=== PATIENT | female | born 1995 | race Caucasian/White ===

== ENCOUNTER 2018-02-04 18:23 | Emergency (ER) | payer OTHER ==
[2018-02-04 19:36] VITALS: BP 148/102
--- NOTE | 2018-02-04 20:06 | UC ---
[facility] HPI - HPI Summary HPI Summary: 22-year-old woman comes in today with a complaint of left rear upper molar and left jaw pain. Pain started yesterday in the left rear upper molar. Since then the pain has gotten worse and the pain is spread into her left jaw ear temporal and left neck. No fevers or chills. The tooth hurts with any Palpation or chewing. Denies any upper respiratory tract infection symptoms. No prior ear pain she is not a swimmer. No prior TMJ syndrome. Neck has got full range of motion. - History of Current Complaint Chief Complaint: UCDentalProblem Stated Complaint: DENTAL PAIN Time Seen by Provider: 02/04/18 19:53 Hx Last Menstrual Period: has mirina Pain Intensity: 8 - Allergies/Home Medications Allergies/Adverse Reactions: Allergies Allergy/AdvReac Type Severity Reaction Status Date / Time No Known Allergies Allergy Verified 02/04/18 19:36 Home Medications: Home Medications Ibuprofen TAB* [Advil TAB*] 200 mg PO ONCE 02/04/18 [History Confirmed 02/04/18] PMH/Surg Hx/FS Hx/Imm Hx Previously Healthy: Yes - Surgical History Surgical History: Yes Surgery Procedure, Year, and Place: T & A. ear tubes, several - Family History Known Family History: Positive: Diabetes - Social History Alcohol Use: Occasionally Substance Use Type: None Smoking Status (MU): Light Every Day Tobacco Smoker Type: Cigarettes Amount Used/How Often: 5 cigs daily Review of Systems Constitutional: Negative Skin: Negative Eyes: Negative ENT: Dental Pain, Other - SEE HPI Respiratory: Negative Cardiovascular: Negative Gastrointestinal: Negative Motor: Negative Neurovascular: Negative Musculoskeletal: Negative Neurological: Negative Psychological: Negative Is Patient Immunocompromised?: No All Other Systems Reviewed And Are Negative: Yes Physical Exam Triage Information Reviewed: Yes Appearance: Well-Appearing, No Pain Distress, Well-Nourished Vital Signs: Initial Vital Signs Temp 98 F 02/04/18 19:32 Pulse 85 02/04/18 19:32 Resp 16 02/04/18 19:32 BP 148/102 02/04/18 19:32 Pulse Ox 100 02/04/18 19:32 Vital Signs Reviewed: Yes Eye Exam: Normal Eyes: Positive: Conjunctiva Clear ENT: Positive: TMs normal, Other - Patient is most tender with palpation of the left upper rear molar. She is also tender at the left TMJ. The parotid gland and submandibular glands are nontender to palpation. Neck is supple with full range of motion. Uvula is midline there's no peritonsillar swelling. There is no facial droop. There is no rash on the face.. Negative: Pharyngeal erythema , Nasal congestion, Nasal drainage Dental: Positive: Percussion Tenderness @ - Left upper rear molar Neck: Positive: Supple Respiratory: Positive: No respiratory distress Musculoskeletal: Positive: Strength Intact, ROM Intact Neurological Exam: Normal Neurological: Positive: Alert, Muscle Tone Normal Psychological Exam: Normal Psychological: Positive: Age Appropriate Behavior Skin Exam: Normal Dental Complaint Course/Dx - Course Course Of Treatment: Most likely cause of the pain is a dental infection affecting the left upper rear molar. The left TMJ is also tender. I explained the differential diagnosis of pain in this area to include problems with the parotid TMJ the to the ear facial nerve. I let her know that if she did not improve with treatment of ibuprofen and antibiotic she needed to get reevaluated. As long as it is the tooth causing the problem her reevaluation will be through the dentist. - Differential Dx/Diagnosis Provider Diagnoses: Dental pain. LEFT JAW PAIN Discharge - Sign-Out/Discharge Documenting (check all that apply): Patient Departure All imaging exams completed and their final reports reviewed: No Studies - Discharge Plan Condition: Stable Disposition: HOME Prescriptions: Amoxicillin/Clavulanate TAB* [Augmentin TAB 875*] 875 mg PO BID #20 tab Ibuprofen TAB* [Motrin TAB* 600 MG] 600 mg PO Q6H PRN #30 tab PRN Reason: Pain Patient Education Materials: Toothache (ED) Referrals: [facility] [place] [facility] [Outside] Additional Instructions: FOLLOW UP WITH YOUR DENTIST OR PRIMARY CARE DOCTOR FOR YOUR TOOTH AND JAW PAIN. GET RECHECKED FOR ANY WORSENING OF YOUR CONDITION OR QUESTIONS OR CONCERNS. - Billing Disposition and Condition Condition: STABLE Disposition: Home
== END 2018-02-04 20:13 | disposition home or self-care (01) ==
LOC: UCCORT 18:23
DX: K08.89 Other specified disorders of teeth and supporting structures (principal); R68.84 Jaw pain; F17.210 Nicotine dependence, cigarettes, uncomplicated
CPT/HCPCS: 99212; G0463

== ENCOUNTER 2018-07-01 09:22 | Emergency (ER) | payer OTHER ==
--- NOTE | 2018-07-01 11:59 | UC ---
Dental HPI - HPI Summary HPI Summary: PT HAS HAD WORSENING PAIN LEFT UPPER WISDOM TOOTH FOR 5 DAYS. STATES SHE HAS HAD RECURRENT PROBLEMS WITH HER WISDOM TEETH AND IS IN THE PROCESS OF TRYING TO ARRANGE FOR EXTRACTION. NO FEVER, N/V. - History of Current Complaint Chief Complaint: UCDentalProblem Stated Complaint: MOUTH COMPLAINT Time Seen by Provider: 07/01/18 11:14 Hx Obtained From: Patient Hx Last Menstrual Period: iud Onset/Duration: Gradual Onset, Lasting Days, Still Present Severity: Moderate Pain Intensity: 5 Pain Scale Used: 0-10 Numeric Aggravating Factor(s): Heat, Cold, Chewing - Allergies/Home Medications Allergies/Adverse Reactions: Allergies Allergy/AdvReac Type Severity Reaction Status Date / Time No Known Allergies Allergy Verified 07/01/18 09:27 PMH/Surg Hx/FS Hx/Imm Hx Previously Healthy: Yes - Surgical History Surgical History: Yes Surgery Procedure, Year, and Place: T & A. ear tubes, several - Family History Known Family History: Positive: Diabetes - Social History Alcohol Use: Occasionally Substance Use Type: None Smoking Status (MU): Light Every Day Tobacco Smoker Type: Cigarettes Amount Used/How Often: 5 cigs daily Review of Systems All Other Systems Reviewed And Are Negative: Yes Constitutional: Positive: Negative ENT: Positive: Dental Pain Respiratory: Positive: Negative Cardiovascular: Positive: Negative Gastrointestinal: Positive: Negative Physical Exam Triage Information Reviewed: Yes Appearance: Well-Appearing, No Pain Distress, Well-Nourished Vital Signs: Initial Vital Signs Temp 96.6 F 07/01/18 09:25 Pulse 99 07/01/18 09:25 Resp 20 07/01/18 09:25 BP 135/96 07/01/18 09:25 Pulse Ox 100 07/01/18 09:25 Vital Signs Reviewed: Yes Eyes: Positive: Conjunctiva Clear ENT: Positive: Hearing grossly normal, Pharynx normal Dental: Positive: Percussion Tenderness @ - LEFT UPPER WISDOM TOOTH. Negative: Cervical Lymphadenopathy Neck: Positive: Supple, Nontender, No Lymphadenopathy Respiratory: Positive: No respiratory distress, No accessory muscle use Cardiovascular: Positive: Pulses Normal Abdomen Description: Positive: Soft Musculoskeletal: Positive: No Edema Neurological: Positive: Alert Psychological: Positive: Age Appropriate Behavior Skin: Negative: Rashes Dental Complaint Course/Dx - Differential Dx/Diagnosis Provider Diagnosis: Tooth infection Discharge - Sign-Out/Discharge Documenting (check all that apply): Patient Departure All imaging exams completed and their final reports reviewed: No Studies - Discharge Plan Condition: Stable Disposition: HOME Prescriptions: Amoxicillin/Clavulanate TAB* [Augmentin TAB 875*] 875 mg PO BID #20 tab Chlorhexidine MW 0.12% 473ML* [Peridex Mouth Wash 0.12%*] 15 ml SWISH SPIT BID # 1 bottle Patient Education Materials: Toothache (ED) Referrals: Eli Brown DIRECTOR OF FUNDRAISING [Primary Care Provider] - If Needed Additional Instructions: FOLLOW-UP WITH AN ORAL SURGEON DISCUSSED. YOU SHOULD HAVE YOUR WISDOM TEETH EXTRACTED. TAKE THE ANTIBIOTICS FOR THE FULL COURSE. RINSE YOUR MOUTH WITH WATER AFTER EATING OR DRINKING ANYTHING. ANTISEPTIC MOUTH RINSE TWICE DAILY. OTC MEDS NEEDED FOR DISCOMFORT. FOLLOW-UP WITH A DENTIST TERRY. IBUPROFEN MAX DOSE: 600MG (3 TABS) EVERY 6 HRS OR 800MG (4 TABS) EVERY 8 HRS OR NAPROXEN MAX DOSE: 440MG (2 TABS) EVERY 12 HRS TYLENOL MAX DOSE: 1000MG (2 EXTRA STRENGTH TABS) EVERY 8 HRS OR 650MG (2 REGULAR TABS) EVERY 6 HRS - Billing Disposition and Condition Condition: STABLE Disposition: Home
[2018-07-01 12:05] VITALS: BP 132/86
== END 2018-07-01 12:03 | disposition home or self-care (01) ==
LOC: UCEAST 09:22
DX: K04.7 Periapical abscess without sinus (principal); F17.210 Nicotine dependence, cigarettes, uncomplicated
CPT/HCPCS: 99212; G0463

== ENCOUNTER 2018-09-01 12:44 | Emergency (ER) | payer OTHER ==
[2018-09-01 13:26] VITALS: BP 122/80
--- NOTE | 2018-09-01 13:59 | UC ---
[facility] HPI - HPI Summary HPI Summary: pain left upper back molar x 2 days pain is 6 out of 10 , worse with chewing , better with Tylenol , no facial swelling, no fever, no chills similar episodes x 2 - History of Current Complaint Chief Complaint: UCDentalProblem Stated Complaint: DENTAL CONCERN Time Seen by Provider: 09/01/18 13:51 Hx Obtained From: Patient Hx Last Menstrual Period: Mirena ?: No Onset/Duration: Gradual Onset, Lasting Days - 2, Still Present Severity: Moderate Pain Intensity: 4 Aggravating Factor(s): Chewing Alleviating Factor(s): OTC Meds Dental: 1 - pain - Allergies/Home Medications Allergies/Adverse Reactions: Allergies Allergy/AdvReac Type Severity Reaction Status Date / Time No Known Allergies Allergy Verified 09/01/18 13:26 PMH/Surg Hx/FS Hx/Imm Hx Previously Healthy: Yes - Surgical History Surgical History: Yes Surgery Procedure, Year, and Place: T & A. ear tubes, several - Family History Known Family History: Positive: Diabetes - Social History Alcohol Use: Occasionally Substance Use Type: None Smoking Status (MU): Light Every Day Tobacco Smoker Type: Cigarettes Amount Used/How Often: 5 cigs daily Review of Systems All Other Systems Reviewed And Are Negative: Yes Constitutional: Positive: Negative Skin: Positive: Negative Eyes: Positive: Negative ENT: Positive: Dental Pain Respiratory: Positive: Negative Is Patient Immunocompromised?: No Physical Exam Triage Information Reviewed: Yes Appearance: Well-Appearing, No Pain Distress, Well-Nourished Vital Signs: Initial Vital Signs Temp 98.0 F 09/01/18 13:21 Pulse 77 09/01/18 13:21 Resp 16 09/01/18 13:21 BP 122/80 09/01/18 13:21 Pulse Ox 99 09/01/18 13:21 Vital Signs Reviewed: Yes Eye Exam: Normal Eyes: Positive: Conjunctiva Clear ENT: Positive: Normal ENT inspection, Hearing grossly normal, Pharynx normal Dental: Positive: Percussion Tenderness @ - #16, Gross Decay/Caries @ - #16 Neck: Positive: Nontender, No Lymphadenopathy Respiratory: Positive: Chest non-tender, Lungs clear, Normal breath sounds Cardiovascular: Positive: RRR, No Murmur, Pulses Normal Skin Exam: Normal Dental Complaint Course/Dx - Differential Dx/Diagnosis Provider Diagnosis: Pain, dental Discharge - Sign-Out/Discharge Documenting (check all that apply): Patient Departure All imaging exams completed and their final reports reviewed: No Studies - Discharge Plan Condition: Stable Disposition: HOME Prescriptions: Amoxicillin PO (*) [Amoxicillin 875 MG (*)] 875 mg PO BID #20 tab Patient Education Materials: Toothache (ED) Referrals: Eli Brown MOTOR REBUILDER [Primary Care Provider] - Additional Instructions: follow up with your dentist - Billing Disposition and Condition Condition: STABLE Disposition: Home
== END 2018-09-01 13:59 | disposition home or self-care (01) ==
LOC: UCCORT 12:44
DX: K08.89 Other specified disorders of teeth and supporting structures (principal); F17.210 Nicotine dependence, cigarettes, uncomplicated
CPT/HCPCS: 99212; G0463

== ENCOUNTER 2018-10-09 18:19 | Emergency (ER) | payer OTHER ==
[2018-10-09 19:02] VITALS: BP 150/98
--- NOTE | 2018-10-09 19:07 | UC ---
Dental HPI - HPI Summary HPI Summary: 23 y/o female presents to the urgent care c/o left upper molar pain w/ a cavity since yesterday. Pt reports she cracked that molar about 1 year ago and she has been postponing the dental visit. Pain today is 6/10. She has taken Ibuprofen 200mg to alleviate symptoms. Pt states she will definitely f/u w/ her Dentist this following week. Pt states denies fever, trismus, GUZMÁN , dizziness, SOB, chest pain, abdominal pain, N/V/d. - History of Current Complaint Chief Complaint: UCDentalProblem Stated Complaint: DENTAL CONCERN Time Seen by Provider: 10/09/18 18:59 Hx Obtained From: Patient Hx Last Menstrual Period: IUD ?: No Onset/Duration: Gradual Onset, Lasting Days - 1 day, Still Present Severity: Moderate Pain Intensity: 6 Pain Scale Used: 0-10 Numeric Aggravating Factor(s): Chewing Alleviating Factor(s): OTC Meds Related History: Swelling - mild, Other - molar fractured in the left upper jaw - Allergies/Home Medications Allergies/Adverse Reactions: Allergies Allergy/AdvReac Type Severity Reaction Status Date / Time No Known Allergies Allergy Verified 10/09/18 18:59 PMH/Surg Hx/FS Hx/Imm Hx Previously Healthy: Yes - Pt deneis PMHX - Surgical History Surgical History: Yes Surgery Procedure, Year, and Place: T & A. ear tubes, several - Family History Known Family History: Positive: Hypertension, Diabetes - Social History Occupation: Employed Full-time Lives: With Family Alcohol Use: Occasionally Substance Use Type: None Smoking Status (MU): Light Every Day Tobacco Smoker Type: Cigarettes Amount Used/How Often: 5 cigs daily Review of Systems All Other Systems Reviewed And Are Negative: Yes Constitutional: Positive: Negative Skin: Positive: Negative Eyes: Positive: Negative ENT: Positive: Dental Pain - left upper jaw pain w/ a fracture molar Respiratory: Positive: Negative Cardiovascular: Positive: Negative Gastrointestinal: Positive: Negative Genitourinary: Positive: Negative Motor: Positive: Negative Neurovascular: Positive: Negative Musculoskeletal: Positive: Negative Neurological: Positive: Negative Psychological: Positive: Negative Is Patient Immunocompromised?: No Physical Exam - Summary Physical Exam Summary: Vital Signs Reviewed: Yes General: Well-Appearing, Well-Nourished female sitting in the examining table w /o any respiratory or pain distress Eyes: Positive: Conjunctiva Clear - PERRLA, EOMI, ENT: Positive: Normal ENT inspection, Hearing grossly normal, Pharynx normal, TMs normal - B/L external ear canals clear,. Negative: Tonsillar swelling, Tonsillar exudate, Trismus Dental: Positive: Gross Decay/Caries on molars #15 w/ gingival swelling and erythema, tender to percussion. involves tissue surrounding theses molars, w/ positive anterior Cervical Lymphadenopathy. Neck: Positive: Supple Respiratory: Positive: Chest non-tender, Lungs clear, Normal breath sounds, No respiratory distress Cardiovascular: Positive: RRR, No Murmur, Pulses Normal, Brisk Capillary Refill Abdomen Description: Positive: Nontender, No Organomegaly, Soft. Negative: CVA Tenderness (R), CVA Tenderness (L) Bowel Sounds: Positive: Present Musculoskeletal: Positive: Strength Intact, ROM Intact, No Edema Neurological Exam: Normal Psychological Exam: Normal Skin Exam: Normal Triage Information Reviewed: Yes Vital Signs: Initial Vital Signs Temp 98 F 10/09/18 18:59 Pulse 75 10/09/18 18:59 Resp 16 10/09/18 18:59 BP 150/98 10/09/18 18:59 Pulse Ox 99 10/09/18 18:59 Dental Complaint Course/Dx - Course Course Of Treatment: 23 y/o female presents to the urgent care c/o left upper molar pain w/ a cavity since yesterday. Pt reports she cracked that molar about 1 year ago and she has been postponing the dental visit. Pain today is 6/10. She has taken Ibuprofen 200mg to alleviate symptoms. Pt states she will definitely f/u w/ her Dentist this following week. Pt states denies fever, trismus, GUZMÁN , dizziness, SOB, chest pain, abdominal pain, N/V/d. Pt with dental abscess around molar # 15 on examination . Pt Rx clyndamycin PO and advised to continue w/ Ibuprofen 600mg PO for pain. Pt strongly advised to f/u with Dentist as soon as possible for further evaluation and treatment. Pt's BP is elevated today advised to decrease salt in diet, monitor BP and f/u with PCP for further management. Pt understood and agreed with plan of care. Left the clinic ambulating. - Differential Dx/Diagnosis Differential Diagnosis/Dx: Dental Abscess, Dental Caries, Odontogenic Pain, Peridontic Disease, Tonsillitis Provider Diagnosis: Dental abscess, Elevated BP without diagnosis of hypertension Discharge - Sign-Out/Discharge Documenting (check all that apply): Patient Departure - d/C home All imaging exams completed and their final reports reviewed: No Studies - Discharge Plan Condition: Stable Disposition: HOME Prescriptions: Clindamycin Cap(NF) [Clindamycin Cap 300 mg Cap(NF)] 300 mg PO TID #30 cap Patient Education Materials: Dental Abscess (ED) Referrals: [facility] [place] [facility] [Outside] - 3 Days Additional Instructions: 1-Please take full course of antibiotics to avoid resistance. Take yogurts w/ probiotics or Culturelle to [id number] your GI system 2- Take Ibuprofen PO 600mg PO q6-8hrs prn after meals to alleviate pain and swelling. 3- F/u with your Dentist on your appt next week for further treatment. 4- Your BP is elevated today. please decrease salt in your diet, monitor BP and if it continues to be elevated please f/u with your PCP for further management. - Billing Disposition and Condition Condition: STABLE Disposition: Home
== END 2018-10-09 19:33 | disposition home or self-care (01) ==
LOC: UCCORT 18:19
DX: K04.7 Periapical abscess without sinus (principal); R03.0 Elevated blood-pressure reading, without diagnosis of hypertension; F17.210 Nicotine dependence, cigarettes, uncomplicated
CPT/HCPCS: 99212; G0463